=== PATIENT | male | born 1945 | race Caucasian/White ===

== ENCOUNTER 2021-02-12 10:03 | Inpatient (IN) | payer MEDICARE, BC, SELFPAY ==
[2021-02-12] VITALS (16 sets, daily range): BP systolic 103–125; BP diastolic 35–57; PULSE 62–106; RESP 12–21; TEMP 36.7–37.7; O2SAT 94–100; BMI 30.1
--- NOTE | ~2021-02-12 | XR_ITS ---
EXAMINATION: XR hip RT min 3V w AP pelvis INDICATION: Right buttock infection TECHNIQUE: AP view of the pelvis and three views of the right hip are obtained. COMPARISON: None available FINDINGS: There is gas in the soft tissues projecting in the expected location of the medial right bu ttock. There is a chronic-appearing intertrochanteric fracture of the right femur with nonunion. Santacruz ges of right above-knee amputation are noted. There is moderate osteoarthritis of the hips. An IVC fi lter is noted. IMPRESSION: 1. Soft tissue gas projecting in the expected location of the medial right buttock. Would recommend f urther evaluation by CT with contrast to evaluate the extent of infection and assess for any signs of Conrad gangrene. 2. 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 Reviewed, dictated and finalized at location A. IMPRESSION: 1. Soft tissue gas projecting in the expected location of the medial right butt ock. Would recommend further evaluation by CT with contrast to evaluate the ext ent of infection and assess for any signs of Conrad gangrene. 2. 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
--- NOTE | ~2021-02-12 | CT_ITS ---
EXAMINATION: CT abdomen pelvis w con DATE: 02/12/2021 17:00 INDICATION: Right buttock ulcer. TECHNIQUE: Computed tomography (CT) of the abdomen and pelvis was performed with 100 mL Omnipaque 350 intravenous contrast. Automated exposure control and iterative reconstruction technique were employe d. The dose-length product was 1893.79 mGy-cm. COMPARISON: CT abdomen and pelvis 01/19/2013 FINDINGS: The visualized portions of the lung bases demonstrate mild atelectasis. No pleural effusion . The heart size is normal. There are coronary artery calcifications. No pericardial effusion. The li riley is normal. The gallbladder is distended, which may secondary to fasting. The spleen, pancreas, an d adrenal glands are normal. There are cysts in the kidneys measuring up to 12 mm on the left. There is a 3.0 cm mass in left kidney measuring soft tissue attenuation. There is a filter in the infrarena l inferior vena cava. The prostate is mildly enlarged. There is a large volume of stool in the colon with distention of the rectum. The appendix is normal. There are epidural electrodes in thoracic spin e. There are foci of shrapnel in the central spinal canal at L2. There is moderate lumbar spondylosis . There is a comminuted intertrochanteric fracture of proximal right femur with nonunion. There is se dajuan right hip osteoarthritis and moderate left hip osteoarthritis. There is severe fatty atrophy of much of the right-sided pelvic musculature. There is a large right-sided hydrocele. There is a small left-sided hydrocele. There is extensive soft tissue stranding with soft tissue gas in the perineum. IMPRESSION: 1. Extensive soft tissue stranding with soft tissue gas in the perineum. Correlate clinically for Fou rnier gangrene. 2. 3.0 cm left kidney mass, which may be a hemorrhagic cyst or less likely a neoplasm. Abdomen CT wit hout and with contrast is recommended. 3. Large right-sided hydrocele and small left-sided hydrocele. Reviewed, dictated and finalized at location A. IMPRESSION: 1. Extensive soft tissue stranding with soft tissue gas in the perineum. Correl ate clinically for Conrad gangrene. 2. 3.0 cm left kidney mass, which may be a hemorrhagic cyst or less likely a ne oplasm. Abdomen CT without and with contrast is recommended. 3. Large right-sided hydrocele and small left-sided hydrocele.
--- NOTE | ~2021-02-12 | XR_ITS ---
EXAMINATION: XR chest 2V DATE: 02/12/2021 13:39 INDICATION: Fever TECHNIQUE: AP and lateral views of the chest are obtained. COMPARISON: 07/19/2019 FINDINGS: The lungs are free of acute opacities. There is no pleural effusion or pneumothorax. The ca rdiomediastinal silhouette is normal. There are bridging osteophytes at multiple levels in the spine, consistent with diffuse idiopathic skeletal hyperostosis (DISH). A neurostimulator lead projects in the central spinal canal the midthoracic spine. There is moderate osteoarthritis of the shoulders. IMPRESSION: 1. No acute cardiopulmonary abnormality. Reviewed, dictated and finalized at location A.
[2021-02-12 10:42] LABS: Hematocrit 41.1 % (42.0-52.0); Hemoglobin 13.4 g/dL (14.0-18.0); Mean Corpuscular HGB Conc 32.6 g/dl (32-36); Mean Corpuscular Volume 91.9 fl (80-100); Mean Platelet Volume 9.1 fl (7.4-10.4); Platelet Count Result 307 k/mm3 (150-375); Red Blood Count 4.47 M/mm3 (4.6-6.20); Red Cell Distribution Width 15.1 % (11.5-14.5); White Blood Count 17.4 K/mm3 (4.5-10.0)
[2021-02-12 10:54] LABS: Alanine Aminotransferase 14 U/L (4-50); Albumin Level 3.6 g/dL (3.5-5.1); Alkaline Phosphatase 82 U/L (38-126); Anion Gap 7 mmol/L (8-16); Aspartate Amino Transferase 20 U/L (17-59); Bilirubin,Total 0.7 mg/dL (0.2-1.3); Blood Urea Nitrogen 23 mg/dL (9-20); Calcium 8.3 mg/dL (8.4-10.2); Carbon Dioxide 23 mmol/L (22-30); Chloride 107 mmol/L (98-107); Estimated CRCL calculation 76 ml/min; Estimated Glomerular Filt Rate > 60; Glucose 120 mg/dL (65-110); Potassium 3.9 mmol/L (3.4-5.0); Sodium 137 mmol/L (137-145)
[2021-02-12 10:55] LABS: Lactic Acid Reflex 1.4 mmol/L (0.7-2.1)
[2021-02-12 11:13] LABS: Band Neutrophils Percent 6 % (0-6); Eosinophils Absolute Manual 0.17 K/mm3 (0.02-0.5); Eosinophils Percent Manual 1 % (0-4); Lymphocytes Absolute Manual 0.34 K/mm3 (1.1-4.5); Lymphocytes Percent Manual 2 % (18-44); Monocytes Absolute Manual 0.69 K/mm3 (0.1-0.90); Monocytes Percent Manual 4 % (3-9); Neutrophils Absolute Manual 16.18 K/mm3 (1.3-6.7); Neutrophils Percent Manual 87 % (46-73); Total Cells Counted 100
[2021-02-12 11:14] LABS: Hypochromasia 1+ (NORMAL); Platelet Estimate Adequate (Adequate)
[2021-02-12] MEDS: ACETAMINOPHEN 500 MG TABLET 1000 MG PO (11:46)
[2021-02-12] MEDS: SODIUM CHLORIDE 0.9% IV 1,000 ML 999 ML IV CONT ×2 (11:48→14:40)
[2021-02-12 12:04] LABS: INR 2.3; Prothrombin Time 24.4 Seconds (11.1-14.7)
[2021-02-12 12:05] LABS: Partial Thromboplastin Time 42.7 SECONDS (22.3-36.8)
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
[2021-02-12 14:29] LABS: Add Urine Microscopic? YES; Appearance Urine Cloudy (Clear); Bacteria Urine 4+ /hpf; Bilirubin Urine Negative (Negative); Blood Urine 1+ (Negative); Color Urine Amber (Yellow); Glucose Urine UA Negative (Negative); Ketones Urine Negative (Negative); Leukocyte Esterase Ur 2+ LEU/UL (Negative); Mucus Urine Few /lpf; Nitrate Urine Negative (Negative); Protein Urine Negative (Negative); RBC Urine 0-2 /hpf (0-2); Squamous Epithelial Cell Urine Moderate /hpf (Few); WBC Urine 16-20 /hpf
--- NOTE | 2021-02-12 15:54 | ADMGEN ---
This patient, Celestino Metzger, was admitted to [facility] Surg Room 313-01. Patient/family oriented to hospital policies and general routines including ID bracelet, bed and alarms, visiting hours, pain management, procedures, bathroom and other care routines, personal items, smoking policy, room service/diet, and visiting hours. Information on how to activate the Rapid Response Team has been discussed. Patient/Family are encouraged to report perceived risks to care and to ask questions if they do not understand what they are told or what they should do.
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
--- NOTE | 2021-02-12 18:00 | WPDANESEPPF ---
Anes - Initial Pre Proc Eval Procedure: I&D right buttock Date/Time: 02/12/21 18:00 Surgeon: Edenilson Pre Op Diagnosis: Wound Infection Patient Data Age: 75 Gender: M Height: 1.88 m Weight: 106.5 kg Last Vital Signs Temp 36.9 C 02/12/21 15:38 Pulse 62 02/12/21 15:38 Resp 20 02/12/21 15:38 BP 114/42 L 02/12/21 15:38 Pulse Ox 99 02/12/21 15:38 Allergies Allergy/AdvReac Type Severity Reaction Status Date / Time Kandi Nut Allergy Mild Unknown Uncoded 02/12/21 16:15 Home Medications Medication Instructions Recorded Confirmed Type Combivent Respimat 1 puff INHALATION TID PRN 07/16/19 02/12/21 History docusate sodium [Colace] 100 mg PO DAILY 07/16/19 02/12/21 History albuterol sulfate 2.5 mg INHALATION Q4H PRN 02/12/21 02/12/21 History bisacodyl [Dulcolax (bisacodyl)] 5 mg PO HS 02/12/21 02/12/21 History budesonide-formoterol [Symbicort] 2 puff INHALATION BID 02/12/21 02/12/21 History candesartan 16 mg PO DAILY 02/12/21 02/12/21 History famotidine-Ca carb-mag hydrox 1 tablet PO BID PRN 02/12/21 02/12/21 History [Pepcid Complete] fexofenadine 180 mg PO DAILY 02/12/21 02/12/21 History montelukast 10 mg PO DAILY 02/12/21 02/12/21 History nitrofurantoin macrocrystal 100 mg PO DAILY 02/12/21 02/12/21 History simvastatin 20 mg PO DAILY 02/12/21 02/12/21 History warfarin 7 mg PO DAILY 02/12/21 02/12/21 History Laboratory Tests 02/12/21 02/12/21 02/12/21 10:30 10:30 10:30 WBC 17.4 K/mm3 H K/mm3 (4.5-10.0) RBC 4.47 M/mm3 L M/mm3 (4.6-6.20) Hgb 13.4 g/dL L g/dL (14.0-18.0) Hct 41.1 % L % (42.0-52.0) MCV 91.9 fl fl (80-100) MCH 30.0 pg pg (26-34) MCHC 32.6 g/dl g/dl (32-36) RDW 15.1 % H % (11.5-14.5) Plt Count 307 k/mm3 k/mm3 (150-375) MPV 9.1 fl fl (7.4-10.4) Immature Gran % (Auto) Not Reportable Neut % (Auto) Not Reportable Lymph % (Auto) Not Reportable Union % (Auto) Not Reportable Eos % (Auto) Not Reportable Baso % (Auto) Not Reportable Lymph # (Auto) Not Reportable Union # (Auto) Not Reportable Eos # (Auto) Not Reportable Baso # (Auto) Not Reportable Abs Immat Gran (auto) Not Reportable Absolute Neuts (auto) Not Reportable Absolute Nucleated RBC Not Reportable Total Counted 100 Neutrophils % (Manual) 87 % H % (46-73) Band Neutrophils % 6 % % (0-6) Lymphocytes % (Manual) 2 % L % (18-44) Monocytes % (Manual) 4 % % (3-9) Eosinophils % (Manual) 1 % % (0-4) Nucleated RBC % Not Reportable Abs Neuts (Manual) 16.18 K/mm3 H K/mm3 (1.3-6.7) Abs Lymphs (Manual) 0.34 K/mm3 L K/mm3 (1.1-4.5) Abs Monocytes (Manual) 0.69 K/mm3 K/mm3 (0.1-0.90) Absolute Eos (Manual) 0.17 K/mm3 K/mm3 (0.02-0.5) Platelet Estimate Adequate (Adequate) Hypochromasia 1+ (NORMAL) PT INR APTT Sodium 137 mmol/L mmol/L (137-145) Potassium 3.9 mmol/L mmol/L (3.4-5.0) Chloride 107 mmol/L mmol/L (98-107) Carbon Dioxide 23 mmol/L mmol/L (22-30) Anion Gap 7 mmol/L L mmol/L (8-16) BUN 23 mg/dL H mg/dL (9-20) Creatinine 1.00 mg/dL mg/dL (0.7-1.3) Estim Creat Clear Calc 76 ml/min ml/min Estimated GFR > 60 (59 - ) Glucose 120 mg/dL H mg/dL (65-110) Lactic Acid 1.4 mmol/L mmol/L (0.7-2.1) Calcium 8.3 mg/dL L mg/dL (8.4-10.2) Total Bilirubin 0.7 mg/dL mg/dL (0.2-1.3) AST 20 U/L U/L (17-59) ALT 14 U/L U/L (4-50) Alkaline Phosphatase 82 U/L U/L (38-126) Total Protein 7.0 g/dL g/dL (6.3-8.2) Albu
[2021-02-12 18:15] LABS: CRP 4.2 mg/dL (<1.0)
--- NOTE | 2021-02-12 18:29 | PC.NURSE ---
To OR per bed, IV intact. Report given to MARCO ANTONIO Burgess.
[2021-02-12] MEDS: LACTATED RINGERS 1,000 ML 30 ML IV CONT (18:30)
--- NOTE | 2021-02-12 18:33 | WPDHPUPDATE1 ---
History and Physical Update Update Date/Time: 02/12/21 18:33 History and Physical has been reviewed, including an updated exam of the patient. There are NO changes in the patient's condition. Risks, benefits, and alternatives have been discussed and questions answered. Patient agrees to proceed with procedure.
--- NOTE | 2021-02-12 19:25 | W.PM.PROC2 ---
Procedure Note - Detailed Date of Procedure 02/12/21 Pre-op Diagnosis Necrotizing wound infection Post-op Diagnosis same Procedure Performed extensive debridement necrotizing wound infection measuring 11 x 5 x 5 cm, excision of necrotic dermis and subcutaneous tissue, washout Surgeon Roseanne Pyle MD Anesthesia general Indications 75-year-old male presenting with a nonhealing wound on right buttock that has progressed to necrotizing wound infection Findings necrotizing wound infection right buttock extending to perineum, scrotum, measuring 11 x 5 x 5 cm involving dermis and subcutaneous tissue not extending into fascia or muscle Description of Procedure The patient was taken the operating room placed in the lateral position. After adequate induction of general anesthesia, the patient was prepped and draped in the normal sterile fashion. Time-out was then done to verify the patient's identity, as well as the procedure being performed. I began by excising necrotic tissue from the right buttock wound which encompassed both dermis and underlying subcutaneous tissue. No actual abscess cavity was noted, but the necrosis was noted to be extensive and foul-smelling. This did extend medially to the perineum and scrotum. The medial extent of the wound was largely just dermal in nature. Again no real fluid collection was noted. Once all the necrotic tissue was removed, hemostasis was gained with the Bovie cautery. The wound measured 11 x 5 x 5 cm. I then washed out the wound. I then packed the wound with a Betadine soaked Kerlix roll. The patient tolerated the procedure relatively well and was extubated postop. He will be transferred to the recovery room in stable condition. Estimated Blood Loss 50 Drains No Packing Yes Pathology yes Complications No immediate complications Condition stable Disposition PACU
[2021-02-12 19:47] LABS: Glucose Point of Care 119 mg/dl (65-105)
[2021-02-12] MEDS: BISACODYL 5 MG TABLET EC PO (21:15)
[2021-02-12] MEDS: FAMOTIDINE 20 MG TABLET PO (21:15)
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
[2021-02-13] VITALS (10 sets, daily range): BP systolic 99–132; BP diastolic 47–56; PULSE 71–89; RESP 18–20; TEMP 36.3–36.9; O2SAT 96–98; BMI 30.1
[2021-02-13] MEDS: ALBUTEROL SULFATE NEB 2.5 MG/3 ML INH INHALATION (00:28)
[2021-02-13] MEDS: ACETAMINOPHEN 325 MG TABLET 650 MG PO ×2 (06:11→17:21)
[2021-02-13] MEDS: CANDESARTAN CILEXETIL 16 MG TABLET PO (08:44)
[2021-02-13] MEDS: NITROFURANTOIN MONOHYD MACROCR 100 MG CAP PO (08:45)
[2021-02-13] MEDS: SIMVASTATIN 20 MG TABLET PO (08:45)
[2021-02-13] MEDS: FAMOTIDINE 20 MG TABLET PO ×2 (08:45→20:37)
[2021-02-13] MEDS: MONTELUKAST SODIUM 10 MG TABLET PO (08:45)
[2021-02-13] MEDS: LORATADINE 10 MG TABLET PO (08:45)
[2021-02-13] MEDS: DOCUSATE SODIUM 100 MG CAPSULE PO (08:45)
[2021-02-13 09:39] LABS: Basophils Percent Auto 0.2 % (0.2-1.2); Hematocrit 36.2 % (42.0-52.0); Hemoglobin 11.8 g/dL (14.0-18.0); Immature Granulocyte Absolute 0.08 K/mm3 (0.00-0.031); Immature Granulocyte Percent A 0.6 % (0-0.5); Lymphocytes Absolute Auto 0.37 K/mm3 (0.9-3.2); Lymphocytes Percent Auto 2.6 % (18.3-44.2); Mean Corpuscular HGB Conc 32.6 g/dl (32-36); Mean Corpuscular Hemoglobin 30.4 pg (26-34); Mean Corpuscular Volume 93.3 fl (80-100); Mean Platelet Volume 9.3 fl (7.4-10.4); Monocytes Absolute Auto 0.8 K/mm3 (0.1-0.6); Monocytes Percent Auto 5.6 % (2.6-8.5); Platelet Count Result 289 k/mm3 (150-375); Red Blood Count 3.88 M/mm3 (4.6-6.20); Red Cell Distribution Width 14.9 % (11.5-14.5); White Blood Count 14.3 K/mm3 (4.5-10.0)
[2021-02-13 09:43] LABS: Anion Gap 9 mmol/L (8-16); Blood Urea Nitrogen 23 mg/dL (9-20); Carbon Dioxide 20 mmol/L (22-30); Chloride 109 mmol/L (98-107); Estimated CRCL calculation 73 ml/min; Estimated Glomerular Filt Rate > 60; Glucose 183 mg/dL (65-110); Potassium 4.1 mmol/L (3.4-5.0); Sodium 138 mmol/L (137-145)
--- NOTE | 2021-02-13 10:06 | PM.PNGS ---
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 Status: Acute Assessment and Plan: better, cont local wound care, unable to vac given location, cont abx, await path Subjective Subjective Date/Time Seen: 02/13/21 10:06 feels better today, no further f/c, minimal soreness Review of Systems Review of Systems: All systems reviewed & are unremarkable except as noted in HPI and below Exam Const: General: cooperative, comfortable and no acute distress Resp: Auscultation: clear to auscultation bilaterally Cardio: Rate: regular rate Rhythm: regular rhythm GI: Inspection: normal to inspection and non-distended GI Palp: Yes Soft to palpation and No Tenderness to palpation present (GI) Skin: Other: R buttock wound - drsg C/D/I Objective Data Vital Signs Vital Signs: Vital Signs - 24 hr 02/12/21 10:47 02/12/21 11:50 02/12/21 11:56 Temperature Pulse Rate 100 104 H 103 H Respiratory Rate 19 18 15 Blood Pressure 103/43 L 116/52 L 116/52 L Pulse Oximetry 100 96 94 02/12/21 12:28 02/12/21 13:29 02/12/21 14:16 Temperature 36.7 C Pulse Rate 97 106 H Respiratory Rate 21 H 21 H Blood Pressure 114/53 L Pulse Oximetry 99 98 02/12/21 15:18 02/12/21 15:38 02/12/21 19:35 Temperature 36.9 C 37.6 C H Pulse Rate 79 62 85 Respiratory Rate 18 20 12 Blood Pressure 121/57 L 114/42 L 108/53 L Pulse Oximetry 97 99 100 02/12/21 19:50 02/12/21 20:05 02/12/21 20:13 Temperature Pulse Rate 80 82 83 Respiratory Rate 20 17 18 Blood Pressure 106/53 L 125/55 L 112/53 L Pulse Oximetry 100 98 97 02/12/21 20:25 02/12/21 20:40 02/12/21 22:20 Temperature 37.1 C 37.1 C 36.7 C Pulse Rate 81 82 85 Respiratory Rate 20 20 20 Blood Pressure 107/39 L 110/45 L 111/48 L Pulse Oximetry 94 95 96 02/13/21 00:28 02/13/21 00:34 02/13/21 00:38 Temperature 36.9 C Pulse Rate 87 86 89 Respiratory Rate 20 20 20 Blood Pressure 115/52 L Pulse Oximetry 96 02/13/21 01:15 02/13/21 02:17 02/13/21 07:48 Temperature 36.8 C 36.8 C Pulse Rate 86 84 Respiratory Rate 20 20 Blood Pressure 99/56 L 113/47 L Pulse Oximetry 96 96 97 Intake/Output Intake/Output: Intake & Output 02/10/21 02/11/21 02/12/21 02/13/21 23:59 23:59 23:59 23:59 Intake Total 2830 460 Output Total 2200 Balance 2830 -1740 Meds/Results Medications: Active Medications Generic Name Dose Route Start Last Admin Trade Name Freq PRN Reason Stop Dose Admin Acetaminophen 650 mg 02/12/21 14:07 02/13/21 06:11 Acetaminophen 325 Mg Tablet PO 650 mg Q4H PRN Administration Mild Pain (1-3) or Fever Hydrocodone Bitart/Acetaminophen 1 tab 02/12/21 14:07 Hydrocodone/Acetaminophen (*Crx) 5-325 Mg Tablet PO Q4H PRN Pain Rated 4-6 Albuterol 2.5 mg 02/12/21 20:17 02/13/21 00:28 Albuterol Sulfate Neb 2.5 Mg/3 Ml Inh INHALATION 2.5 mg Q4H PRN Administration Dyspnea Bisacodyl 5 mg 02/12/21 21:00 02/12/21 21:15 Bisacodyl 5 Mg Tablet Ec PO 5 mg HS PANCHO Administration Budesonide/Formoterol Fumarate 2 puff 02/12/21 20:20 02/13/21 07:47 Budesonide/Form 160-4.5 Mcg (*Sp) INHALATION 2 puff Q12HRT PANCHO Administration Candesartan Cilexetil 16 mg 02/13/21 09:00 02/13/21 08:44 Candesartan Cilexetil 16 Mg Tablet PO 16 mg DAILY PANCHO Administration Docusate Sodium 100 mg 02/13/21 09:00 02/13/21 08:45 Docusate Sodium 100 Mg Capsule PO 100 mg DAILY PANCHO Administration Famotidine 20 mg 02/12/21 21:00 02/13/21 08:45 Famotidine 20 Mg Tablet PO 20 mg Q12HR PANCHO Administration Piperacillin/Tazobactam/Dextrose 3.375 gm in 50 mls @ 100 mls/hr 02/12/21 18:00 02/13/21 06:35 Zosyn 3.375 Gm/D5w 50ml Pm IVPB Infused Q6H PANCHO Infusion Loratadine 10 mg 02/13/21 09:00 02/13/21 08:45 Loratadine 10 Mg Tablet PO 10 mg QAM PANCHO Administration Montelukast Sodium 10 mg 02/13/21 09:00 0
[2021-02-13 11:13] LABS: Prothrombin Time 29.9 Seconds (11.1-14.7)
[2021-02-13] MEDS: SILVERGEL (ELTA) 45 ML 1 APPLIC TOPICAL ×2 (12:14→20:41)
--- NOTE | 2021-02-13 17:13 | PM.IMPN ---
Progress Note: A&P Assessment and Plan (1) Decubitus ulcer, unstageable with infection: Code(s): L89.95 - Pressure ulcer of unspecified site, unstageable; L08.9 - Local infection of the skin and subcutaneous tissue, unspecified Status: Acute Assessment and Plan: patient has been started on empiric antibiotic therapy with Zosyn. General surgery has been consulted for possible debridement of wound. Will check x-ray of the pelvis to rule out possible tracking of infectious process, subcutaneous air. 02/13/21 17:13 patient had a surgical debridement, surgeon is present in the room there were no abscess, plan is to place wound VAC and have wound team follow the patient, patient denies any fevers, wound culture is growing E coli will follow-up on sensitivity,patient being treated Zosyn and will monitor (2) Sepsis: Qualifiers: Sepsis type: sepsis due to unspecified organism Sepsis acute organ dysfunction status: without acute organ dysfunction Qualified Code(s): A41.9 - Sepsis, unspecified organism Code(s): A41.9 - Sepsis, unspecified organism Status: Acute Assessment and Plan: Sepsis based on criteria of leukocytosis, fever, tachycardia, and tachypnea. Criteria present on admission. Blood cultures and urine cultures pending. Sepsis due to infected decubitus ulcer. Empiric antibiotic therapy with Zosyn has been ordered. The patient had not received IV fluid hydration in the ER subsequently 2 L of normal saline bolus has been ordered with maintenance fluids to be continued at 100 mL an hour given patient's low urine output. Will repeat CBC, BMP and INR with a.m. labs. (3) Tobacco abuse: Code(s): Z72.0 - Tobacco use Status: Acute Assessment and Plan: The patient is not interested in tobacco cessation currently. Education has been provided. (4) Neurogenic bladder: Code(s): N31.9 - Neuromuscular dysfunction of bladder, unspecified Status: Inactive Assessment and Plan: Continue chronic suppressive therapy with Macrodantin. Intermittent straight catheterization t.i.d. (5) Chronic anticoagulation: Code(s): Z79.01 - computer terminal operator (current) use of anticoagulants Status: Acute Assessment and Plan: check daily INR given antibiotic administration. Additional Plan Patient has been admitted as observation status. Subjective Date/time seen: 02/13/21 17:13 patient has been started on empiric antibiotic therapy with Zosyn. General surgery has been consulted for possible debridement of wound. Will check x-ray of the pelvis to rule out possible tracking of infectious process, subcutaneous air. patient had a surgical debridement, surgeon is present in the room there were no abscess, plan is to place wound VAC and have wound team follow the patient, patient denies any fevers, wound culture is growing E coli will follow-up on sensitivity,patient being treated Zosyn and will monitor Review of Systems Review of Systems: All systems reviewed & are unremarkable except as noted in HPI and below Exam Narrative: Patient is comfortable, NAD HEENT: eyes are clear and none icteric LUNGS:CTA HEART: RR S1S2 ABD: BS+, Soft and nontender Lower extremities: no edema SKIN: nonjaundiced Neuro: grossly intact. Objective Data Vital Signs Vital Signs: Vital Signs - 24 hr 02/12/21 19:35 02/12/21 19:50 02/12/21 20:05 Temperature 99.7 F H Pulse Rate 85 80 82 Respiratory Rate 12 20 17 Blood Pressure 108/53 L 106/53 L 125/55 L Pulse Oximetry 100 100 98 02/12/21 20:13 02/12/21 20:25 02/12/21 20:40 Temperature 98.7 F 98.8 F Pulse Rate 83 81 82 Respiratory Rate 18 20 20 Blood Pressure 112/53 L 107/39 L 110/45 L Pulse Oximetry 97 94 95 02/12/21 22:20 02/13/21 00:28 02/13/21 00:34 Temperature 98.1 F 98.5 F Pulse Rate 85 87 86 Respiratory Rate 20 20 20 Blood Pressure 111/48 L 115/52 L
[2021-02-13] MEDS: BISACODYL 5 MG TABLET EC PO (20:53)
[2021-02-14] MEDS: MORPHINE SULFATE (*CRX) 4 MG/ML INJ IV PUSH (03:38)
[2021-02-14 06:00] VITALS: BP 156/81; PULSE 66; RESP 18; TEMP 36.8; O2SAT 98
[2021-02-14 06:52] LABS: Basophils Percent Auto 0.3 % (0.2-1.2); Eosinophils Absolute Auto 0.2 K/mm3 (0-0.3); Eosinophils Percent Auto 1.5 % (0-4.4); Hematocrit 35.4 % (42.0-52.0); Hemoglobin 11.8 g/dL (14.0-18.0); Immature Granulocyte Absolute 0.05 K/mm3 (0.00-0.031); Immature Granulocyte Percent A 0.4 % (0-0.5); Lymphocytes Percent Auto 7.4 % (18.3-44.2); Mean Corpuscular HGB Conc 33.3 g/dl (32-36); Mean Corpuscular Hemoglobin 30.3 pg (26-34); Mean Corpuscular Volume 90.8 fl (80-100); Mean Platelet Volume 9.1 fl (7.4-10.4); Monocytes Absolute Auto 1.2 K/mm3 (0.1-0.6); Neutrophils Absolute Auto 9.8 K/mm3 (1.3-6.7); Neutrophils Percent Auto 80.4 % (45.5-73.1); Platelet Count Result 303 k/mm3 (150-375); Red Cell Distribution Width 14.7 % (11.5-14.5); White Blood Count 12.1 K/mm3 (4.5-10.0)
[2021-02-14 07:08] LABS: Anion Gap 6 mmol/L (8-16); Blood Urea Nitrogen 20 mg/dL (9-20); Calcium 8.5 mg/dL (8.4-10.2); Carbon Dioxide 24 mmol/L (22-30); Chloride 109 mmol/L (98-107); Estimated CRCL calculation 93 ml/min; Estimated Glomerular Filt Rate > 60; Glucose 95 mg/dL (65-110); Sodium 139 mmol/L (137-145)
[2021-02-14 07:55] LABS: Prothrombin Time 30.6 Seconds (11.1-14.7)
[2021-02-14] MEDS: MONTELUKAST SODIUM 10 MG TABLET PO (08:59)
[2021-02-14] MEDS: DOCUSATE SODIUM 100 MG CAPSULE PO (08:59)
[2021-02-14] MEDS: LORATADINE 10 MG TABLET PO (08:59)
[2021-02-14] MEDS: NITROFURANTOIN MONOHYD MACROCR 100 MG CAP PO (08:59)
[2021-02-14] MEDS: CANDESARTAN CILEXETIL 16 MG TABLET PO (08:59)
[2021-02-14] MEDS: SIMVASTATIN 20 MG TABLET PO (08:59)
[2021-02-14] MEDS: FAMOTIDINE 20 MG TABLET PO (08:59)
[2021-02-14] MEDS: SILVERGEL (ELTA) 45 ML 1 APPLIC TOPICAL (09:00)
--- NOTE | 2021-02-14 12:46 | PM.PNGS ---
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 Okay from a surgical standpoint to discharge the patient home today. Continue local wound care - his plans to do dressing changes at home. F/u in wound clinic in 2 weeks. Limit pressure to the wound. Continue abx per Hospitalist. Additional Plan I have discussed the patient's case and plan of care with Dr. Pyle. Subjective Subjective Date/Time Seen: 02/14/21 12:00 Post Op day: 2 Patient reports: no new complaints, bowel movement and afebrile Interval history: Patient doing well today. Per the nurse, he changed the dressing this morning and had no concerns with the wound, he denies any purulent drainage in the wound or on the dressing. Patient is eager to go home and his is at the bedside. His is a retired nurse and feels comfortable doing dressing changes at home. They do not feel that they need home health to come by. Review of Systems Review of Systems: All systems reviewed & are unremarkable except as noted in HPI and below Exam Const: General: cooperative, comfortable and no acute distress Orientation/consciousness: patient oriented x3 Skin: Other: Right buttock dressing clean, dry, intact. (recently changed by nurse) Psych: Mental Status: mental status grossly normal Insight: Good insight present (Psych) Judgement: Good judgement present (Psych) Objective Data Vital Signs Vital Signs: Vital Signs - 24 hr 02/13/21 14:00 02/13/21 20:00 02/13/21 20:36 Temperature 97.4 F L Pulse Rate 71 73 Respiratory Rate 18 20 Blood Pressure 118/53 L Pulse Oximetry 98 98 97 02/13/21 22:00 02/14/21 06:00 Temperature 97.3 F L 98.2 F Pulse Rate 73 66 Respiratory Rate 20 18 Blood Pressure 132/51 L 156/81 H Pulse Oximetry 98 98 Intake/Output Intake/Output: Intake & Output 02/11/21 02/12/21 02/13/21 02/14/21 23:59 23:59 23:59 23:59 Intake Total 2830 2000 415 Output Total 5800 Balance 2830 -3800 415 Meds/Results Medications: Active Medications Generic Name Dose Route Start Last Admin Trade Name Freq PRN Reason Stop Dose Admin Acetaminophen 650 mg 02/12/21 14:07 02/13/21 17:21 Acetaminophen 325 Mg Tablet PO 650 mg Q4H PRN Administration Mild Pain (1-3) or Fever Hydrocodone Bitart/Acetaminophen 1 tab 02/12/21 14:07 Hydrocodone/Acetaminophen (*Crx) 5-325 Mg Tablet PO Q4H PRN Pain Rated 4-6 Albuterol 2.5 mg 02/12/21 20:17 02/13/21 00:28 Albuterol Sulfate Neb 2.5 Mg/3 Ml Inh INHALATION 2.5 mg Q4H PRN Administration Dyspnea Bisacodyl 5 mg 02/12/21 21:00 02/13/21 20:53 Bisacodyl 5 Mg Tablet Ec PO 5 mg HS PANCHO Administration Budesonide/Formoterol Fumarate 2 puff 02/12/21 20:20 02/14/21 08:13 Budesonide/Form 160-4.5 Mcg (*Sp) INHALATION 2 puff Q12HRT PANCHO Administration Candesartan Cilexetil 16 mg 02/13/21 09:00 02/14/21 08:59 Candesartan Cilexetil 16 Mg Tablet PO 16 mg DAILY PANCHO Administration Docusate Sodium 100 mg 02/13/21 09:00 02/14/21 08:59 Docusate Sodium 100 Mg Capsule PO 100 mg DAILY PANCHO Administration Famotidine 20 mg 02/12/21 21:00 02/14/21 08:59 Famotidine 20 Mg Tablet PO 20 mg Q12HR PANCHO Administration Piperacillin/Tazobactam/Dextrose 3.375 gm in 50 mls @ 100 mls/hr 02/12/21 18:00 02/14/21 12:30 Zosyn 3.375 Gm/D5w 50ml Pm IVPB 100 mls/hr Q6H PANCHO Administration Loratadine 10 mg 02/13/21 09:00 02/14/21 08:59 Loratadine 10 Mg Tablet PO 10 mg QAM PANCHO Administration Montelukast Sodium 10 mg 02/13/21 09:00 02/14/21 08:59 Montelukast Sodium 10 Mg Tablet PO 10 mg DAILY PANCHO Administration Morphine Sulfate 4 mg 02/12/21 14:07 02/14/21 03:38 Morphine Sulfate (*Crx) 4 Mg/Ml Inj IV PUSH 4 mg Q2H PRN Administration Pain Rated 7-10 Nitrofurantoin Macrocrystals
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
[2021-02-14 14:00] VITALS: BP 141/74; PULSE 72; RESP 14; TEMP 36.6; O2SAT 98
--- NOTE | 2021-02-15 06:40 | P.CDI_ITS ---
CDI Query Clarification Request -02/12 urine culture growing >100,000 E Coli Please clarify if there is a possible corresponding diagnosis for above finding: * UTI * Bacteriuria * No clinical significance * Unable to determine <Seema Zhu RN - Last Filed: 02/15/21 06:41> Clarified Diagnosis (1) UTI (urinary tract infection): Code(s): N39.0 - Urinary tract infection, site not specified <Seema Zhu RN - Last Filed: 02/15/21 06:41> Status: Acute <Seema Zhu RN - Last Filed: 02/15/21 06:41> Assessment and Plan: Patient urine is growing E coli patient has uti <Rosalba Cleaning MD - Last Filed: 03/12/21 08:57>
== END 2021-02-14 14:34 | disposition home or self-care (01) | DRG 872 ==
LOC: ANHED 11:03 → ANH3MEDSUR 14:55
PROVIDERS: Emergency Medicine; Surgery; Admitting Provider Internal Medicine; Emergency Provider Emergency Medicine; PCP Family Medicine; Visit Provider Family Medicine
PROC: 0HB8XZZ Excision of Buttock Skin, External Approach (ICD-10-PCS; CPT 46040; principal; 2021-02-12 18:45)
DX: A41.9 Sepsis, unspecified organism (principal); G82.22 Paraplegia, incomplete; L89.890 Pressure ulcer of other site, unstageable; L08.9 Local infection of the skin and subcutaneous tissue, unspecified; N49.3 Fournier gangrene; N31.9 Neuromuscular dysfunction of bladder, unspecified; F17.210 Nicotine dependence, cigarettes, uncomplicated; J44.9 Chronic obstructive pulmonary disease, unspecified; I10 Essential (primary) hypertension; E78.5 Hyperlipidemia, unspecified; Z79.01 Long term (current) use of anticoagulants; Z79.899 Other long term (current) drug therapy; Z86.711 Personal history of pulmonary embolism; Z89.611 Acquired absence of right leg above knee; Z91.81 History of falling; Z99.3 Dependence on wheelchair
CPT/HCPCS: 36415; 51701; 71046; 73502; 74177; 80048; 80053; 81001; 82948; 83605; 85025; 85610; 85730; 86140; 87040; 87070; 87077; 87086; 87088; 87147; 87186; 87205; 88304; 94640; 96361; 96365; 96366; 99285; A9270; G0378; J0330; J1100; J2270; J2405; J2543; J2704; J7030; J7120; Q9967

== ENCOUNTER 2021-03-01 11:08 | Outpatient (CLI) | payer MEDICARE, BC, SELFPAY ==
[2021-03-01 11:34] LABS: Hematocrit 37.4 % (42.0-52.0); Hemoglobin 12.3 g/dL (14.0-18.0); Mean Corpuscular HGB Conc 32.9 g/dl (32-36); Mean Corpuscular Hemoglobin 30.8 pg (26-34); Mean Corpuscular Volume 93.5 fl (80-100); Mean Platelet Volume 8.4 fl (7.4-10.4); Platelet Count Result 472 k/mm3 (150-375); Red Cell Distribution Width 14.3 % (11.5-14.5); White Blood Count 17.1 K/mm3 (4.5-10.0)
[2021-03-01 12:26] LABS: Band Neutrophils Percent 2 % (0-6); Eosinophils Absolute Manual 0.51 K/mm3 (0.02-0.5); Eosinophils Percent Manual 3 % (0-4); Lymphocytes Absolute Manual 0.51 K/mm3 (1.1-4.5); Monocytes Absolute Manual 0.51 K/mm3 (0.1-0.90); Monocytes Percent Manual 3 % (3-9); Neutrophils Absolute Manual 15.56 K/mm3 (1.3-6.7); Neutrophils Percent Manual 89 % (46-73); Platelet Estimate Adequate (Adequate); Total Cells Counted 100
[2021-03-01 13:40] LABS: Add Urine Microscopic? YES; Appearance Urine Clear (Clear); Bilirubin Urine Negative (Negative); Blood Urine Negative (Negative); Color Urine Amber (Yellow); Glucose Urine UA Negative (Negative); Ketones Urine Negative (Negative); Leukocyte Esterase Ur 2+ LEU/UL (Negative); Mucus Urine Few /lpf; Nitrate Urine Negative (Negative); Protein Urine 1+ mg/dL (Negative); Specific Grav Ur 1.028 (1.001-1.035); Squamous Epithelial Cell Urine Few /hpf (Few); WBC Urine 21-30 /hpf
== END 2021-03-01 11:09 | disposition home or self-care (01) ==
PROVIDERS: PCP Family Medicine; Visit Provider Surgery
DX: R50.9 Fever, unspecified (principal)
CPT/HCPCS: 36415; 81001; 85025; 87077; 87086; 87088; 87186

== ENCOUNTER 2021-03-04 10:10 | Emergency (ER) | payer MEDICARE, BC, SELFPAY ==
[2021-03-04] VITALS (11 sets, daily range): BP systolic 96–126; BP diastolic 50–78; PULSE 81–116; RESP 18–22; TEMP 36.9–38.7; O2SAT 92–99
--- NOTE | ~2021-03-04 | CT_ITS ---
EXAMINATION: CT abdomen pelvis w con DATE: 03/04/2021 14:27 INDICATION: Nausea and vomiting. Fever. TECHNIQUE: Computed tomography (CT) of the abdomen and pelvis was performed with 100 mL Omnipaque 350 intravenous contrast. Automated exposure control and iterative reconstruction technique were employe d. The dose-length product was 1985.93 mGy-cm. COMPARISON: CT abdomen and pelvis 02/12/2021 FINDINGS: The visualized portions of the lung bases demonstrate mild atelectasis. No pleural effusion . The heart size is normal. There are coronary artery calcifications. There is a trace left pericardi al effusion. Calcified right hilar lymph nodes are consistent with old granulomatous disease. The ita er, gallbladder, pancreas, and adrenal glands are normal. Calcifications in the spleen are consistent with old granulomatous disease. There are cysts in right kidney measuring up to 10 mm. There is a 3. 1 cm mass in left kidney measuring soft tissue attenuation. The prostate is mildly enlarged. There ar e no dilated loops of bowel. The appendix is normal. There is a filter in the infrarenal inferior lindsey a cava. There are no pathologically enlarged lymph nodes. There is no free intraperitoneal fluid. In the right perineum, there is an ulcer with extensive fat stranding and soft tissue gas extending supe riorly to the ischiorectal fat. There is a comminuted intertrochanteric fracture of proximal right fe mur with nonunion. There is severe right hip osteoarthritis and moderate left hip osteoarthritis. The re are epidural electrodes in thoracic spine. There is shrapnel in central spinal canal at L2. There is moderate lumbar spondylosis and mild thoracic spondylosis. IMPRESSION: 1. Worsened ulcer in the right perineum with cellulitis and soft tissue gas extending superiorly to t he ischiorectal fat. Correlate clinically for Conrad gangrene. 2. 3.1 cm left kidney mass, which may be a hemorrhagic cyst or less likely a neoplasm. Abdomen CT wit hout and with contrast is recommended. Reviewed, dictated and finalized at location A. IMPRESSION: 1. Worsened ulcer in the right perineum with cellulitis and soft tissue gas ext ending superiorly to the ischiorectal fat. Correlate clinically for Conrad gómez. 2. 3.1 cm left kidney mass, which may be a hemorrhagic cyst or less likely a ne oplasm. Abdomen CT without and with contrast is recommended.
--- NOTE | ~2021-03-04 | XR_ITS ---
XR chest 2V DATE: 03/04/2021 10:50 INDICATION: Shortness of breath, fever TECHNIQUE: AP and lateral views COMPARISON: 02/12/2021 AP and lateral chest FINDINGS: Normal heart size. No hilar or mediastinal enlargement. There is mild left basilar infiltrate or atelectasis. No pulmonary infiltrate or consolidation, pleural effusion or pulmonary vascular congestion or pneumo thorax is noted otherwise. Electrodes overlie the mid to lower thoracic spine. Diffuse idiopathic skeletal hyperostosis of the thoracic spine. IMPRESSION: Mild left basilar infiltrate and/atelectasis Reviewed, dictated and finalized at location A.
--- NOTE | 2021-03-04 10:19 | ECG_ITS ---
Measurements Intervals [place] Rate: 114 P: 28 MT: 135 QRS: 6 QRSD: 113 T: 58 QT: 330 QTc: 456 Interpretive Statements SINUS TACHYCARDIA INTRAVENTRICULAR CONDUCTION DELAY BASELINE ARTIFACT- I, II, AVR, AVL, AVF, V1-V2, V4-V6 ABNORMAL ECG Electronically Signed On 03-04-2021 13:24:13 CDT by Heber Bradshaw D.O.
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
[2021-03-04 11:41] LABS: Hematocrit 32.7 % (42.0-52.0); Hemoglobin 10.8 g/dL (14.0-18.0); Mean Corpuscular Hemoglobin 30.4 pg (26-34); Mean Corpuscular Volume 92.1 fl (80-100); Platelet Count Result 395 k/mm3 (150-375); Red Blood Count 3.55 M/mm3 (4.6-6.20); Red Cell Distribution Width 14.1 % (11.5-14.5); White Blood Count 14.2 K/mm3 (4.5-10.0)
[2021-03-04] MEDS: SODIUM CHLORIDE 0.9% IV 1,000 ML 999 ML IV CONT ×2 (11:50→12:53)
[2021-03-04] MEDS: ONDANSETRON INJ 4 MG/2 ML VIAL IV PUSH (11:50)
[2021-03-04 11:53] LABS: Lactic Acid Reflex 3.1 mmol/L (0.7-2.1)
[2021-03-04 11:56] LABS: INR 1.9; Prothrombin Time 21.2 Seconds (11.1-14.7)
[2021-03-04 11:57] LABS: Partial Thromboplastin Time 39.3 SECONDS (22.3-36.8)
[2021-03-04 12:02] LABS: Alanine Aminotransferase 27 U/L (4-50); Albumin Level 3.1 g/dL (3.5-5.1); Alkaline Phosphatase 143 U/L (38-126); Anion Gap 7 mmol/L (8-16); Aspartate Amino Transferase 35 U/L (17-59); Bilirubin,Total 0.4 mg/dL (0.2-1.3); Blood Urea Nitrogen 34 mg/dL (9-20); Carbon Dioxide 28 mmol/L (22-30); Chloride 103 mmol/L (98-107); Estimated CRCL calculation 67 ml/min; Estimated Glomerular Filt Rate > 60; Glucose 122 mg/dL (65-110); Potassium 3.7 mmol/L (3.4-5.0); Sodium 138 mmol/L (137-145)
[2021-03-04 12:17] LABS: Platelet Estimate Adequate (Adequate)
[2021-03-04 12:42] LABS: Add Urine Microscopic? YES; Appearance Urine Clear (Clear); Bacteria Urine Trace /hpf; Bilirubin Urine Negative (Negative); Blood Urine Negative (Negative); Color Urine Amber (Yellow); Glucose Urine UA Negative (Negative); Ketones Urine Negative (Negative); Leukocyte Esterase Ur 1+ LEU/UL (Negative); Mucus Urine Rare /lpf; Nitrate Urine Negative (Negative); Protein Urine 1+ mg/dL (Negative); Squamous Epithelial Cell Urine Moderate /hpf (Few)
[2021-03-04] MEDS: SODIUM CHLORIDE 0.9% IV 500 ML 999 ML IV CONT (14:27)
[2021-03-04 14:37] LABS: Reflex Lactic Acid Yes or No Add Lactic
[2021-03-04] MEDS: CIPROFLOXACIN 400 MG/D5W 200ML 200 ML 200 MG IVPB (15:29)
[2021-03-04] MEDS: MORPHINE SULFATE (*CRX) 2 MG/ML INJ IV PUSH (16:49)
== END 2021-03-04 16:50 | disposition short-term general hospital (02) ==
PROVIDERS: Emergency Provider General Practice; PCP Family Medicine
DX: N49.3 Fournier gangrene (principal); A41.9 Sepsis, unspecified organism; N30.00 Acute cystitis without hematuria; N28.89 Other specified disorders of kidney and ureter; J44.9 Chronic obstructive pulmonary disease, unspecified; F17.210 Nicotine dependence, cigarettes, uncomplicated; Z86.718 Personal history of other venous thrombosis and embolism; Z79.01 Long term (current) use of anticoagulants; Z86.711 Personal history of pulmonary embolism
CPT/HCPCS: 36415; 51701; 71046; 74177; 80053; 81001; 83605; 85025; 85610; 85730; 86140; 87040; 87070; 87086; 87147; 87181; 87186; 87205; 93005; 96365; 96367; 96368; 96375; 99285; J0131; J0692; J0744; J2270; J2405; J7030; J7040; Q9967

== ENCOUNTER 2021-08-28 15:11 | Outpatient (CLI) | payer MEDICARE, BC, SELFPAY ==
--- NOTE | ~2021-08-28 | XR_ITS ---
XR hand RT min 3V DATE: 08/28/2021 15:37 INDICATION: Right hand injury, pain TECHNIQUE: 4 views COMPARISON: None FINDINGS: No fracture or dislocation, periosteal reaction or bone destruction is evident. There is po lyarticular osteoarthritis. IMPRESSION: No fracture or dislocation is detected Reviewed, dictated and finalized at location B. AL CATEGORY MANAGER
== END 2021-08-28 15:12 | disposition home or self-care (01) ==
PROVIDERS: PCP Family Medicine; Visit Provider Family Medicine
DX: M79.641 Pain in right hand (principal)
CPT/HCPCS: 73130

== ENCOUNTER 2024-04-24 20:38 | Emergency (ER) | payer MEDICARE, BC, SELFPAY ==
[2024-04-24] VITALS (12 sets, daily range): BP systolic 128–190; BP diastolic 80; PULSE 91–103; RESP 15–22; TEMP 36.7–38.4; O2SAT 92–99
--- NOTE | ~2024-04-24 | CT_ITS ---
EXAMINATION: CT pelvis w con DATE: 04/25/2024 02:31 INDICATION: Conrad gangrene. Fever. TECHNIQUE: Computed tomography (CT) of the pelvis was performed with 100 mL Omnipaque 350 intravenous contrast. Automated exposure control and iterative reconstruction technique were employed. The dose- length product was 1278.40 mGy-cm. COMPARISON: CT abdomen and pelvis 04/24/2024 FINDINGS: Partially visualized is a colostomy on the left. There are no dilated loops of bowel. The p rostate is mildly enlarged. There are no pathologically enlarged lymph nodes. There is no free intrap eritoneal fluid. There is asymmetric severe fatty atrophy of the right pelvic and right thigh muscula ture. There is a large right hydrocele. There is a decubitus ulcer overlying right ischium. There is sclerosis in right ischium with aggressive periosteal reaction. There is an old fracture of proximal right femur with nonunion. IMPRESSION: 1. Decubitus ulcer overlying right ischium with chronic osteomyelitis of right ischium. 2. Large right hydrocele. Reviewed, dictated and finalized at location A.
--- NOTE | ~2024-04-24 | CT_ITS ---
EXAMINATION: CT abdomen pelvis w con DATE: 04/24/2024 22:29 INDICATION: Fever. TECHNIQUE: Computed tomography (CT) of the abdomen and pelvis was performed with 100 mL Omnipaque 350 intravenous contrast. Automated exposure control and iterative reconstruction technique were employe d. The dose-length product was 1884.68 mGy-cm. COMPARISON: CT abdomen and pelvis 03/04/2021 FINDINGS: The visualized portions of the lung bases demonstrate mild atelectasis. No pleural effusion . Calcified right hilar lymph nodes are consistent with old granulomatous disease. The heart size is normal. There are coronary artery calcifications. No pericardial effusion. There is a small sliding h iatal hernia. The liver is normal. Calcifications in the spleen are consistent with old granulomatous disease. The gallbladder and pancreas are normal. There is a 3.1 cm mass in left kidney measuring so ft tissue attenuation. There are cysts in the kidneys measuring up to 8 mm on the right. There is an end colostomy on the left. There are no dilated loops of bowel. The appendix is normal. The prostate is mildly enlarged. There is a filter in the inferior vena cava. There are no pathologically enlarged lymph nodes. There is no free intraperitoneal fluid. Epidural electrodes are noted. There is an old fracture of proximal right femur with nonunion. There is a decubitus ulcer overlying right ischial tu berosity extending to the bone. There is sclerosis and aggressive periosteal reaction involving right ischium, consistent with osteomyelitis. There are bridging endplate osteophytes at multiple levels i n the spine, consistent with diffuse idiopathic skeletal hyperostosis (DISH). There is moderate lumba r spondylosis. There is mild chronic anterior wedging at T7. IMPRESSION: 1. Right ischial decubitus ulcer with chronic osteomyelitis of right ischium. 2. 3.1 cm left kidney mass, which may be a hemorrhagic cyst, but renal cell carcinoma cannot be exclu ded. Abdomen CT without and with contrast is recommended. Reviewed, dictated and finalized at location A. IMPRESSION: 1. Right ischial decubitus ulcer with chronic osteomyelitis of right ischium. 2. 3.1 cm left kidney mass, which may be a hemorrhagic cyst, but renal cell car cinoma cannot be excluded. Abdomen CT without and with contrast is recommended.
--- NOTE | ~2024-04-24 | XR_ITS ---
EXAMINATION: XR chest 1V portable Exam Date/Time: 04/24/2024 20:52 CDT HISTORY: weakness Comparison: 03/04/2021. RESULT: Lines, tubes, and devices: Stimulator leads over the lower thoracic spine.. Lungs and pleura: Low volumes with crowding, otherwise clear. Cardiomediastinal silhouette: Stable. Other: No acute osseous or upper abdominal finding. IMPRESSION: No acute cardiopulmonary process. Reviewed, dictated and finalized at location K.
--- NOTE | 2024-04-24 20:47 | ECG_ITS ---
Test Date: 2024-04-24 20:51:43 Measurements Intervals [place] Rate: 102 P: 18 MA: 176 QRS: -4 QRSD: 113 T: 53 QT: 350 QTc: 456 Interpretive Statements SINUS TACHYCARDIA INCOMPLETE RIGHT BUNDLE BRANCH BLOCK [90+ ms QRS DURATION, TERMINAL R IN V1/V2, 40+ ms S IN I/aVL/V4/V5/V6] NONSPECIFIC T-WAVE ABNORMALITY ABNORMAL RHYTHM ECG No previous ECG available for comparison Electronically Signed On 04-24-2024 22:07:02 CDT by Álvaro Cain M.D.
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
[2024-04-24 21:34] LABS: Basophils Percent Auto 0.3 % (0.2-1.2); Eosinophils Absolute Auto 0.2 K/mm3 (0-0.3); Eosinophils Percent Auto 1.5 % (0-4.4); Hematocrit 37.3 % (42.0-52.0); Hemoglobin 12.2 g/dL (14.0-18.0); Immature Granulocyte Absolute 0.03 K/mm3 (0.00-0.031); Immature Granulocyte Percent A 0.3 % (0-0.5); Lymphocytes Absolute Auto 0.39 K/mm3 (0.9-3.2); Lymphocytes Percent Auto 3.3 % (18.3-44.2); Mean Corpuscular HGB Conc 32.7 g/dl (32-36); Mean Corpuscular Hemoglobin 30.7 pg (26-34); Mean Platelet Volume 9.3 fl (7.4-10.4); Monocytes Absolute Auto 0.7 K/mm3 (0.1-0.6); Monocytes Percent Auto 6.2 % (2.6-8.5); Neutrophils Absolute Auto 10.3 K/mm3 (1.3-6.7); Neutrophils Percent Auto 88.4 % (45.5-73.1); Platelet Count Result 275 k/mm3 (150-375); Red Blood Count 3.97 M/mm3 (4.6-6.20); Red Cell Distribution Width 14.9 % (11.5-14.5); White Blood Count 11.7 K/mm3 (4.5-10.0)
[2024-04-24] MEDS: LACTATED RINGERS 1,000 ML 999 ML IV CONT (21:35)
[2024-04-24] MEDS: MORPHINE SULFATE (*CRX) 4 MG/ML INJ IV PUSH (21:35)
[2024-04-24 21:44] LABS: INR 1.2; Prothrombin Time 15.5 Seconds (11.1-14.7)
[2024-04-24 21:46] LABS: Partial Thromboplastin Time 26.9 Seconds (22.3-36.8)
[2024-04-24 21:48] LABS: Alanine Aminotransferase 20 U/L (6-50); Albumin Level 4.1 g/dL (3.5-5.1); Alkaline Phosphatase 76 U/L (38-126); Anion Gap 8 mmol/L (4-12); Aspartate Amino Transferase 22 U/L (17-59); Bilirubin,Total 0.6 mg/dL (0.2-1.3); Blood Urea Nitrogen 27 mg/dL (9-20); Calcium 8.7 mg/dL (8.4-10.2); Carbon Dioxide 25 mmol/L (22-30); Chloride 104 mmol/L (98-107); Estimated CRCL calculation 70 ml/min; Estimated Glomerular Filt Rate > 60; Glucose 156 mg/dL (65-110); Sodium 137 mmol/L (137-145)
[2024-04-24 21:55] LABS: Lactic Acid Reflex 1.3 mmol/L (0.7-2.0)
[2024-04-24 21:58] LABS: CRP 3.2 mg/dL (<1.0)
--- NOTE | 2024-04-24 22:17 | PC.NURSE ---
Patient in CT at this time.
[2024-04-24] MEDS: ACETAMINOPHEN 500 MG TABLET 1000 MG PO (22:48)
[2024-04-24] MEDS: PIPERACILLN/TAZ 3.375GM/NS50ML 3.375 GM/50 ML BAG IVPB (22:49)
--- NOTE | 2024-04-24 23:00 | PC.NURSE ---
0795 Michelle, patients nurse/caregiver at the [facility] calls to get update on patients status.
[2024-04-24] MEDS: metroNIDAZOLE 500 MG/ISO 100ML 500 MG/100 ML BAG 100 MG IVPB (23:29)
[2024-04-25] VITALS (7 sets, daily range): BP systolic 119–187; BP diastolic 70–99; PULSE 60–89; RESP 13–20; TEMP 36.7–38.3; O2SAT 94–97
--- NOTE | 2024-04-25 00:44 | PC.NURSE ---
Julianne, caregiver and nurse at [facility] calls to get update.
[2024-04-25] MEDS: VANCOMYCIN 1,250 MG/NS 250 ML 1,250 MG/250 ML BAG 166.67 MG IVPB ×2 (01:40→03:41)
[2024-04-25 03:30] LABS: Add Urine Microscopic? YES; Appearance Urine Clear (Clear); Bacteria Urine None Seen /hpf; Bilirubin Urine Negative (Negative); Blood Urine Negative (Negative); Color Urine Yellow (Yellow); Glucose Urine UA Negative (Negative); Ketones Urine Negative (Negative); Leukocyte Esterase Ur Negative LEU/UL (Negative); Need Manual Microscopic Reviewed; Nitrate Urine Positive (Negative); Non Pathogenic Casts 0-2; Protein Urine Trace mg/dL (Negative); RBC Urine 0-2 /hpf (0-2); Specific Grav Ur > 1.045 (1.001-1.035); Squamous Epithelial Cell Urine None Seen /hpf (Few); Urobilinogen Urine 0.2 mg/dL (<2.0); WBC Urine 21-50 /hpf (0-3)
--- NOTE | 2024-04-25 03:40 | PC.NURSE ---
Patient report called to [facility] at [phone]. Calling for transport at this time. Awaiting ETA for air evac or ALS EMS.
--- NOTE | 2024-04-25 03:41 | PC.NURSE ---
Patients caregiver and nurse, Julianne, at [facility] calls to get update. Julianne informed of patients transfer to [facility] and transfer diagnosis.
--- NOTE | 2024-04-25 04:42 | PC.NURSE ---
[facility] here to transport patient.
== END 2024-04-25 04:58 | disposition short-term general hospital (02) ==
PROVIDERS: Emergency Provider Student in an Organized Health Care Education/Training Program; PCP Family Medicine
DX: L02.31 Cutaneous abscess of buttock (principal); L03.317 Cellulitis of buttock; E11.52 Type 2 diabetes mellitus with diabetic peripheral angiopathy with gangrene; A48.0 Gas gangrene; J44.9 Chronic obstructive pulmonary disease, unspecified; E11.9 Type 2 diabetes mellitus without complications; E78.5 Hyperlipidemia, unspecified; N31.9 Neuromuscular dysfunction of bladder, unspecified; M17.12 Unilateral primary osteoarthritis, left knee; F17.210 Nicotine dependence, cigarettes, uncomplicated; Z93.3 Colostomy status; Z96.82 Presence of neurostimulator; Z86.711 Personal history of pulmonary embolism; Z87.440 Personal history of urinary (tract) infections; Z89.611 Acquired absence of right leg above knee; Z90.49 Acquired absence of other specified parts of digestive tract; Z79.01 Long term (current) use of anticoagulants; Z79.899 Other long term (current) drug therapy
CPT/HCPCS: 36415; 71045; 72193; 74177; 80053; 81001; 83605; 85025; 85610; 85730; 86140; 87040; 87086; 93005; 96365; 96366; 96367; 96375; 99285; A9270; J1836; J2270; J2543; J3370; J7120; Q9967

== ENCOUNTER 2024-10-15 10:36 | Emergency (ER) | payer MEDICARE, BC, SELFPAY ==
[2024-10-15] VITALS (7 sets, daily range): BP systolic 140–161; BP diastolic 82–87; PULSE 76–98; RESP 15–25; TEMP 36.6; O2SAT 97–99
--- NOTE | ~2024-10-15 | XR_ITS ---
EXAMINATION: XR chest 2V 10/15/2024 11:08 INDICATION: Shortness of breath PROCEDURE: 2 view chest COMPARISON: Comparison to multiple prior studies sequentially, with oldest reviewed study dated 12/2019. FINDINGS: The lungs are clear. The cardiomediastinal silhouette is within normal limits. There are no pleural effusions. There is no pneumothorax suspected. There is a spinal stimulator lead. IMPRESSION: 1: NO ACUTE CARDIOPULMONARY DISEASE. Reviewed, dictated and finalized at location A.
--- NOTE | 2024-10-15 10:47 | ECG_ITS ---
Test Date: 2024-10-15 10:50:10 Measurements Intervals [place] Rate: 92 P: 61 AL: 208 QRS: -9 QRSD: 118 T: 70 QT: 365 QTc: 452 Interpretive Statements SINUS RHYTHM INCOMPLETE RIGHT BUNDLE BRANCH BLOCK BORDERLINE ECG Compared to ECG 04/24/2024 20:51:43 HEART RATE HAS DECREASED Electronically Signed On 10-15-2024 10:58:19 CDT by Heber Bradshaw D.O.
[2024-10-15 11:05] LABS: Basophils Percent Auto 0.4 % (0.2-1.2); Eosinophils Percent Auto 12.3 % (0-4.4); Hematocrit 38.9 % (42.0-52.0); Immature Granulocyte Absolute 0.04 K/mm3 (0.00-0.031); Immature Granulocyte Percent A 0.5 % (0-0.5); Lymphocytes Absolute Auto 0.62 K/mm3 (0.9-3.2); Lymphocytes Percent Auto 7.5 % (18.3-44.2); Mean Corpuscular HGB Conc 30.8 g/dl (32-36); Mean Corpuscular Hemoglobin 29.3 pg (26-34); Mean Corpuscular Volume 94.9 fl (80-100); Mean Platelet Volume 9.5 fl (7.4-10.4); Monocytes Percent Auto 11.4 % (2.6-8.5); Neutrophils Absolute Auto 5.7 K/mm3 (1.3-6.7); Neutrophils Percent Auto 67.9 % (45.5-73.1); Platelet Count Result 297 k/mm3 (150-375); White Blood Count 8.3 K/mm3 (4.5-10.0)
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
--- OUTSIDE RECORDS SUMMARY | 2024-10-15 11:08 | XMS_ITS | Clinical Summary ---
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 patient review this report in the presence of a health care provider who can answer questions and explain the details. Final Report Patient Name: DEBBIE BROCK : 1945 (Age: 78) Gender: M Address: [address] [place] [address] Hospital #: [id number] Service: Surgery Location: Patient Type: [facility] OUTPATIENT Taken: 08/19/2024 Received: 08/19/2024 Accessioned: 08/19/2024 Reported: 08/20/2024 Physician(s): MD Buck Tipton M.D. Diagnosis: Hydrocele, right, hydrocelectomy: - Hydrocele Kt Looney M.D., Ph.D. Report Electronically Reviewed and Signed Out By Kt Looney M.D., Ph.D. 08/20/2024 16:21:00 Specimen(s) Received: A: Hydrocele sac Microscopic Description: Microscopic examination is performed. Microscopic examination is performed. Clinical History: The patient is a 78-year-old man with a hydrocele. Operative procedure: Right hydrocelectomy. Gross Description Received in formalin, labeled with the patient s identifiers and hydrocele sac and consists of three medina-red, irregularly shaped, membranous tissue fragments ranging from 4.2 x 2.2 x 0.3 cm to 9.5 x 2.7 x 0.5 cm. The tissue fragments are wrinkled and glistening. No nodules or masses are grossly identified. B[employer] Machine Feeder Offbearer sections are submitted. Labeled A1. Jac Garcia jjmhb/08/19/2024 12:55 MAXINE Condon, PA (ASCP) Microscopic slide review and interpretation for this case was performed at [facility], Department of Surgical Pathology, [address] [facility] [place], [place] [id number], [place] [id number] CLIA # [id number] us Ranjith White MD LAB PATHOLOGY ORDERA BLES Final Result PATHOLOGY [facility] * MI AN ELECTIVE SUPRAGLOTTIC AIRWAY, MI AN PROCEDURE PLACEHOLDER (08/19/2024 10:00 AM FOOD BEVERAGE MANAGER) Narrative Hannah Nunn CRNA - 08/19/2024 10:00 AM FOOD BEVERAGE MANAGER Hannah Nunn CRNA 08/19/2024 10:00 AM Airway Patient location: OR Urgency: elective Indications for airway management: anesthesia Difficult airway: no Staff: Placed by: [employer] AGENT: Hannah Nunn CRNA Emergent airway documentation: Risks and benefits discussed: yes Consent obtained: yes Consent given by: patient Airway prep: Preoxygenated: yes Patient position: sniffing MILS maintained throughout: yes Mask difficulty assessment: 0 - not attempted Spontaneous ventilation during airway: absent Sedation level during airway: GA Final airway details: Final airway type: supraglottic airway Final supraglottic airway: classic SGA size: 4 Number of attempts: 1 us Darren Collins MD ANESTHESIA ORDERABLES Final Result * Urine culture Urine, in and out catheter (08/10/2024 8:40 AM FOOD BEVERAGE MANAGER) Report Final Report: Less than 10,000 colonies/mL (clinically insignificant growth based on current clinical standards) Comment:Testing performed by : [facility], [address] [facility], [place]., [address] Organism (CLINICALLY INSIGNIFICANT GROWTH [facility] GARCIA Urine, in and out catheter 08/10/2024 8:40 AM FOOD BEVERAGE MANAGER 08/10/2024 1:45 PM FOOD BEVERAGE MANAGER Narrative OLGA RADHA - 08/12/2024 3:11 PM FOOD BEVERAGE MANAGER collect time 07:00 Testing performed by [facility] Microbiology Laboratory ([phone]) us Ranjith White MD LAB MICROBIOLOGY - G ENERAL ORDERABLES Final Result [facility] [address] [facility] Department [place] [address] * ECG 12 lead (08/09/2024 2:21 PM FOOD BEVERAGE MANAGER) Ventricular Rate EKG/Min 77 BPM [facility] Atrial Rate 77 BPM [facility] MI-Interval (MSEC) 152 ms [facility] QRS-Interval (MSEC) 110 ms [facility] QT-Interval (MSEC) 384 ms [facility] QTc 434 ms [facility] P [place] 21 degrees [facility] R [place] -4 degrees [facility] T [place] 46 degrees [facility] Diagnosis Normal sinus rhythm Normal ECG When compared with ECG of 07-MAR-2021 06:07 Premature ventricular complexes absent Confirmed by JEREMIAS VERDUGO M.D. ([id number]) on 08/09/2024 9:29:57 PM [facility] 08/09/2024 2:21 PM FOOD BEVERAGE MANAGER 08/09/2024 9:29 PM FOOD BEVERAGE MANAGER us Shelby Perales A OPERATOR ECG ORDERABLES [place] Result [facility] * Post-Discharge Dressing Care (07/28/2024 1:59 PM FOOD BEVERAGE MANAGER) Narrative Preeti Beaver, MARCO ANTONIO - 07/28/2024 1:59 PM FOOD BEVERAGE MANAGER Right ischium wound: - SQ debridement (done) - Silver nitrate (done) - Vashe soak, 10 minutes (done) - Stoma powder and skin prep to periwound - Promogran to wound, cover with Exudry Right buttock wound: - Promogran to open wound, cover with Allevyn gentle border dressing Follow-up in approximately one month Wound care performed per order. us Clotilde Vargas NP NURSING WOUND CARE Final Result * US Scrotum W Limited Doppler (C) (07/27/2024 10:48 AM FOOD BEVERAGE MANAGER) Anatomical Region Laterality Modality Testis N/A Ultrasound 07/27/2024 11:0 0 AM FOOD BEVERAGE MANAGER Narrative 07/27/2024 11:15 AM FOOD BEVERAGE MANAGER EXAM DESCRIPTION: US SCROTUM W LIMITED DOPPLER (C) REASON FOR STUDY: RIGHT HYDROCELE TECHNIQUE: Clements scale imaging of the scrotum and testes with selected color Doppler and spectral analysis. COMPARISON: Ultrasound dated 04/26/2024 FINDINGS: RIGHT: TESTICLE: The right testicle measures 3.8 x 3.1 x 2.8 cm. Right testicle appears small in size previously measuring 4.6 x 3.6 x 2.3 cm. There is minimal to no flow seen within the right testicle. EPIDIDYMIS: The epididymis is poorly seen. HYDROCELE OR VARICOCELE: There is a very large right hydrocele which appears increased in size since the prior examination measuring approximately 13 x 12 cm. It has internal debris. Previously it measured about 11 x 11 x 9 cm. HERNIA OR EXTRA-TESTICULAR MASS: There is no evidence of extratesticular mass. OTHER: No other significant finding. LEFT: TESTICLE: The left testicle measures 2.5 x 3.2 x 2.0 cm. There is markedly decreased color Doppler flow in the left testicle. A faint arterial waveform is seen at the periphery of the left testicle. In the left testicle appears hypoechoic. EPIDIDYMIS: Not well seen. HYDROCELE OR VARICOCELE: There is no evidence of significant hydrocele or varicocele. HERNIA OR EXTRA-TESTICULAR MASS: There is no evidence of extratesticular mass. OTHER: No other significant finding. IMPRESSION: 1. Bilateral testicular ischemia. No blood flow seen within the right testicle and markedly diminished blood flow in the left testicle. This could be secondary to torsion or from mass effect from the massive right hydrocele. Urgent urology consultation recommended. Dr. Vásquez discussed this with Dr. Stubbs at 11:15 a.m. on 07/27/2024 THIS IS AN ELECTRONICALLY VERIFIED FINAL REPORT 07/27/2024 11:15 AM - Electronically signed by Raheel Vásquez M.D. KN: [id number] Report ID: [id number] Reading Location: [id number] Procedure Note Raheel Vásquez MD - 07/27/2024 EXAM DESCRIPTION: US SCROTUM W LIMITED DOPPLER (C) REASON FOR STUDY: RIGHT HYDROCELE TECHNIQUE: Clements scale imaging of the scrotum and testes with selectedcolor Doppler and spectral analysis. COMPARISON: Ultrasound dated 04/26/2024 FINDINGS: RIGHT: TESTICLE: The right testicle measures 3.8 x 3.1 x 2.8 cm. Righttesticle appears small in size previously measuring 4.6 x 3.6 x 2.3 cm. There is minimal to no flow seen within the right testicle. EPIDIDYMIS: The epididymis is poorly seen. HYDROCELE OR VARICOCELE: There is a very large right hydrocele whichappears increased in size since the prior examination measuring approximately 13 x12 cm. It has internal debris. Previously it measured about 11 x 11 x 9 cm. HERNIA OR EXTRA-TESTICULAR MASS: There is no evidence of extratesticular mass. OTHER: No other significant finding. LEFT: TESTICLE: The left testicle measures 2.5 x 3.2 x 2.0 cm. There ismarkedly decreased color Doppler flow in the left testicle. A faint arterialwaveform is seen at the periphery of the left testicle. In the left testicleappears hypoechoic. EPIDIDYMIS: Not well seen. HYDROCELE OR VARICOCELE: There is no evidence of significant hydrocele or varicocele. HERNIA OR EXTRA-TESTICULAR MASS: There is no evidence of extratesticular mass. OTHER: No other significant finding. IMPRESSION: 1. Bilateral testicular ischemia. No blood flow seen within the right testicle and markedly diminished blood flow in the left testicle. Thiscould be secondary to torsion or from mass effect from the massive righthydrocele. Urgent urology consultation recommended. Dr. Vásquez discussed this with Dr. Stubbs at 11:15 a.m. on 07/27/2024 THIS IS AN ELECTRONICALLY VERIFIED FINAL REPORT 07/27/2024 11:15 AM - Electronically signed by Raheel Vásquez M.D. KN: KN Report ID: [id number] Reading Location: [place] [address] us Yousef John White MD IMG US PROCEDURES Fi nal Result * eGFR (04/30/2024 8:22 PM CDT) eGFR 83 >=60 mL/min/1. 73 m2 Comment: Interpretive Data Reference Interval Normal >/= 90 mL/min/1.73m2 Mildly decreased* 60 - 89 mL/min/1.73m2 Mildly to moderately decreased 45 - 59 mL/min/1.73m2 Moderately to severely decreased 30 - 44 mL/min/1.73m2 Severely decreased 15 - 29 mL/min/1.73m2 Kidney Failure < 15 mL/min/1.73m2 *Relative to young adult level Estimated glomerular filtration rate is determined by the 2020 CKD-EPI equation recommended by the National Kidney Foundation (A Unifying Approach to GFR Estimation: Recommendations of the NKF-ASK Task Force on Reassessing the Inclusion of Race in Diagnosing Kidney Disease, JASN 202). The CKD-EPI equation should not be used for patients with unstable renal function and has not been validated in children and those over 70. Current interpretive data was last reviewed 2021. Blood 04/30/2024 8:22 PM CDT 04/30/2024 8:37 PM CDT us Vicky Duenas MD LAB BLOOD ORDERABLES Final Res ult [facility] Department [place] [address] * (ABNORMAL) Hemoglobin A1c (04/26/2024 4:32 AM CDT) Hgb A1C 7.1(H) 4.0 - 5.6 % Estimated Average Glucose 157 mg/dL [facility] Comment: The ADA recommends reporting an estimated Average Glucose (eAG) with all Hemoglobin A1c results using the equation derived from a study of 507 normal and diabetic adults. Minority populations were underrepresented and children were not included. (Diabetes Care 2020; 43(S1): S66-S76). The eAG is not equivalent to a fasting glucose. Blood 04/26/2024 4:32 AM CDT 04/26/2024 4:44 AM CDT us Vicky Duenas MD LAB BLOOD ORDERABLES Final Res ult [facility] Department [place] [address] * (ABNORMAL) Lipid panel (04/26/2024 4:32 AM CDT) Cholesterol 120 30 - 199 mg/dL Comment: Interpretive Data Ages < or = 19 years Acceptable: <170 mg/dL Borderline high: 170-199 mg/dL High: >or= 200 mg/dL Ages > or = 20 years Desirable: <200 mg/dL Borderline high: 200-239 mg/dL High: >or= 240 mg/dL Literature References: 1. Expert Panel on Integrated Guidelines for Cardiovascular Health and Risk Reduction in Children and Adolescents. Pediatrics 2011;128:S213 2. NCEP Expert Panel. Circulation 2004;110:227 Current Interpretive Data was last revised on 2018. Triglycerides 114 <=149 mg/dL [facility] Comment: Interpretive Data Ages < or = 9 years Acceptable: <75 mg/dL Borderline high: 75-99 mg/dL High: >or= 100 mg/dL Ages 10 to 20 years Acceptable: <90 mg/dL Borderline high: 90-129 mg/dL High: >or= 130 mg/dL Ages > or = 20 years Desirable: <150 mg/dL Borderline high: 150-199 mg/dL High: 200-499 mg/dL Very high: >or= 499 mg/dL Literature References: 1. Expert Panel on Integrated Guidelines for Cardiovascular Health and Risk Reduction in Children and Adolescents. Pediatrics 2011;128:S213 2. NCEP Expert Panel. Circulation 2004;110:227 Current Interpretive Data was last revised on 2018. HDL 30(L) >=40 mg/dL [facility] Comment: Interpretive Data Ages < or = 19 years Acceptable: >45 mg/dL Borderline low: 40-45 mg/dL Low: <40 mg/dL Ages > or = 20 years Desirable: >or= 60 mg/dL Low: <40 mg/dL Literature References: 1. Expert Panel on Integrated Guidelines for Cardiovascular Health and Risk Reduction in Children and Adolescents. Pediatrics 2011;128:S213 2. NCEP Expert Panel. Circulation 2004;110:227 Current Interpretive Data was last revised on 2018. LDL, calculated 69 <=129 mg/dL [facility] Comment: Interpretive Data Ages < or = 19 years Acceptable: <110 mg/dL Borderline high: 110-129 mg/dL High: >or= 130 mg/dL Ages > or = 20 years Optimal: <100 mg/dL Near optimal: 100-129 mg/dL Borderline high: 130-159 mg/dL High: >160 mg/dL Calculated using the Tani LDL-C estimating equation. This equation was implemented on 2024. Prior to this date LDL-C was estimated using the Friedewald equation. Literature References: 1. Expert Panel on Integrated Guidelines for Cardiovascular Health and Risk Reduction in Children and Adolescents. Pediatrics 2011;128:S213 2. NCEP Expert Panel. Circulation 2004;110:227 3. Tani Padron al. JULIO CESAR Cardiol. 2020 November 11;5(5):540-548. doi: 10.1001/jamacardio.2020.0013 Current Interpretive Data was last revised on 2024. Non-HDL Cholesterol 90 mg/dL [facility] Comment: Interpretive Data Ages < or = 19 years Acceptable: <120 mg/dL Borderline high: 120-144 mg/dL High: >145 mg/dL Ages > or = 20 years When triglycerides are >200 mg/dL, Non-HDL cholesterol is a secondary target of therapy with treatment goals that are 30 mg/dL greater than the LDL cholesterol target. Literature References: 1. Expert Panel on Integrated Guidelines for Cardiovascular Health and Risk Reduction in Children and Adolescents. Pediatrics 2011;128:S213 2. NCEP Expert Panel. Circulation 2004;110:227 Current Interpretive Data was last revised on 2018. Chol/HDL ratio 4 [facility] Blood 04/26/2024 4:32 AM CDT 04/26/2024 4:44 AM CDT us Cam Sanchez MD LAB BLOOD ORDERABLES Fin al Result [facility] Department [place] [address] * CT Abdomen Pelvis W Contrast (05/02/2021 8:13 PM CDT) Anatomical Region Laterality Modality Body N/A Computed Tomogra phy 05/02/2021 8:26 PM CDT Impressions 05/03/2021 7:39 AM CDT 1. No etiology is seen on CT to explain the patient's symptoms. 2. Large right gluteal soft tissue wound with an overlying wound VAC is unchanged. Likely osteomyelitis is also unchanged. 3. Postsurgical changes of Rivas's pouch with an end colostomy in the lower midline abdomen. Dictated by: Rhiannon Hunter M.D. The radiology attending physician has personally reviewed this study, and had reviewed and/or edited this written report and agrees with it. Electronically signed by: Barry Becker M.D. Narrative 05/03/2021 7:39 AM CDT EXAMINATION: Computed tomography of the abdomen and pelvis with intravenous contrast HISTORY: 75-year-old man with a colostomy, presenting with abdominal pain and generalized weakness. TECHNIQUE: Transaxial computed tomographic images of the abdomen and pelvis were obtained with intravenous contrast according to the standard protocol after the uneventful administration of 100 mL Opti-Ray 350 intravenous contrast. COMPARISON: Comparison is made to a prior CT scan dated 03/15/2021. FINDINGS: The visualized portions of the heart and lung bases are normal. The liver, gallbladder, pancreas, and spleen appear normal. The adrenal glands and right kidney appear normal. A simple cyst is present in the inferior pole the left kidney. There is no hydronephrosis. The urinary bladder is decompressed. There is no evidence of bowel obstruction. The appendix appears normal. There is a Rivas's pouch with an end colostomy in the lower midline abdomen. There is stranding in the subcutaneous tissues along the midline surgical incision without evidence of an organized collection. Atherosclerotic calcifications are present in the aorta and its branches. There is an inferior vena cava filter. Calcifications are present within both common femoral and external iliac veins, which may be related to chronic thrombus. 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 There is a large soft tissue wound along the right gluteal region with an overlying wound VAC, which is unchanged. Soft tissue calcifications are seen superior to that soft tissue wound. A spinal stimulator device is partially visualized. The wound extends to the right ischium and there is likely osteomyelitis without change from the prior. Procedure Note Barry Becker MD - 05/03/2021 EXAMINATION: Computed tomography of the abdomen and pelvis with intravenous contrast HISTORY: 75-year-old man with a colostomy, presenting with abdominal pain and generalized weakness. TECHNIQUE: Transaxial computed tomographic images of the abdomen and pelvis were obtained with intravenous contrast according to the standard protocol after the uneventful administration of 100 mL Opti-Ray 350 intravenous contrast. COMPARISON: Comparison is made to a prior CT scan dated 03/15/2021. FINDINGS: The visualized portions of the heart and lung bases are normal. The liver, gallbladder, pancreas, and spleen appear normal. The adrenal glands and right kidney appear normal. A simple cyst is present in the inferior pole the left kidney. There is no hydronephrosis. The urinary bladder is decompressed. There is no evidence of bowel obstruction. The appendix appears normal. There is a Rivas's pouch with an end colostomy in the lower midline abdomen. There is stranding in the subcutaneous tissues along the midline surgical incision without evidence of an organized collection. Atherosclerotic calcifications are present in the aorta and its branches. There is an inferior vena cava filter. Calcifications are present within both common femoral and external iliac veins, which may be related to chronic thrombus. 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 There is a large soft tissue wound along the right gluteal region with an overlying wound VAC, which is unchanged. Soft tissue calcifications are seen superior to that soft tissue wound. A spinal stimulator device is partially visualized. The wound extends to the right ischium and there is likely osteomyelitis without change from the prior. IMPRESSION: 1. No etiology is seen on CT to explain the patient's symptoms. 2. Large right gluteal soft tissue wound with an overlying wound VAC is unchanged. Likely osteomyelitis is also unchanged. 3. Postsurgical changes of Rivas's pouch with an end colostomy in the lower midline abdomen. Dictated by: Rhiannon Hunter M.D. The radiology attending physician has personally reviewed this study, and had reviewed and/or edited this written report and agrees with it. Electronically signed by: Barry Becker M.D. Slava Ferrari MD IMG CT PROCEDURES Final Result from Last 3 Months or Most Recently Relevant to Health Maintenance Insurance MEDICARE [employer] OOS MEDICARE [facility] MEDICARE [facility] TRADITIONAL MEDICARE [employer] OOS Advance Directives For more information, please contact: [phone] * Full Code (Latest Code Status on File) Date Activated Date Inactivated Comments 04/25/2024 6:25 PM 05/01/2024 7:29 PM * Full Code Date Activated Date Inactivated Comments 03/05/2021 3:45 AM 03/21/2021 6:52 PM Care Teams Edge Polisher Relationship Specialty Start Date End Date Buck Sawyer MD [address] [place] [id number] PCP - General 05/02/21
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
[2024-10-15 11:15] LABS: Alanine Aminotransferase 23 U/L (6-50); Alkaline Phosphatase 107 U/L (38-126); Anion Gap 8 mmol/L (4-12); Aspartate Amino Transferase 22 U/L (17-59); Bilirubin,Total 0.3 mg/dL (0.2-1.3); Blood Urea Nitrogen 38 mg/dL (9-20); Calcium 8.7 mg/dL (8.4-10.2); Carbon Dioxide 29 mmol/L (22-30); Chloride 105 mmol/L (98-107); Estimated Glomerular Filt Rate > 60; Glucose 252 mg/dL (65-110); Potassium 4.6 mmol/L (3.4-5.0); Sodium 142 mmol/L (137-145)
[2024-10-15] MEDS: ALBUTEROL SULFATE NEB 2.5 MG/3 ML INH INHALATION (11:23)
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
[2024-10-15] MEDS: MORPHINE SULFATE (*CRX) 2 MG/ML INJ IV PUSH (11:51)
--- NOTE | 2024-10-15 11:59 | PC.NURSE ---
Pt self catheterizes. Provided with cath kit.
[2024-10-15 12:21] LABS: Influenza A QL RT-PCR Negative (Negative); Influenza B QL RT-PCR Negative (Negative); RSV RNA, RT-PCR Negative (Negative); SARS-CoV-2 RNA PCR Negative (Negative)
[2024-10-15 13:58] LABS: Add Urine Microscopic? NO; Appearance Urine Clear (Clear); Bilirubin Urine Negative (Negative); Blood Urine Negative (Negative); Color Urine Yellow (Yellow); Glucose Urine UA 3+ mg/dL (Negative); Ketones Urine Negative (Negative); Leukocyte Esterase Ur Negative LEU/UL (Negative); Nitrate Urine Negative (Negative); Protein Urine Negative (Negative); Specific Grav Ur 1.022 (1.001-1.035); Urobilinogen Urine 0.2 mg/dL (<2.0); pH Urine 6.5 (5.0-9.0)
[2024-10-15] MEDS: traMADol HCL (*CRX) 50 MG TABLET PO (14:35)
== END 2024-10-15 15:03 | disposition home or self-care (01) ==
PROVIDERS: Emergency Provider Emergency Medicine; PCP Family Medicine
DX: M54.9 Dorsalgia, unspecified (principal); J44.9 Chronic obstructive pulmonary disease, unspecified; E11.9 Type 2 diabetes mellitus without complications; E78.5 Hyperlipidemia, unspecified; F17.210 Nicotine dependence, cigarettes, uncomplicated; Z20.822 Contact with and (suspected) exposure to COVID-19
CPT/HCPCS: 36415; 71046; 80053; 81003; 85025; 87637; 93005; 94640; 96374; 99284; A9270; J2270

== ENCOUNTER 2025-01-05 08:01 | Outpatient (CLI) | payer MEDICARE, BC, SELFPAY ==
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
[2025-01-30 22:10] VITALS: BMI 34.0
== END 2025-01-06 06:29 | disposition home or self-care (01) ==
LOC: ANHCSM 08:02
PROVIDERS: PCP Family Medicine; Visit Provider Family Medicine
DX: G47.33 Obstructive sleep apnea (adult) (pediatric) (principal)
CPT/HCPCS: 95811

== ENCOUNTER 2025-02-21 14:11 | Outpatient (CLI) | payer MEDICARE, BC, SELFPAY ==
--- NOTE | ~2025-02-21 | XR_ITS ---
Exam: X-ray knee left 3 views. HISTORY: Unspecified injury to left lower leg. Fell 2 weeks ago. TECHNIQUE: 4 images of the left knee were obtained. COMPARISON: None FINDINGS: Bones appear osteopenic. Moderate to severe narrowing of the medial compartment. Spurring of the tibi al spines. Moderate sized superior pole and inferior pole spurs in the patella. Small suprapatellar e ffusion. Vascular calcifications are present. Moderate narrowing of the patellofemoral joint. No frac ture. No dislocation. Soft tissue swelling about the left knee. IMPRESSION: 1. No acute bony abnormality. 2. Moderate to severe narrowing of the medial compartment. 3. Moderate narrowing of the patellofemoral joint. If symptoms persist or worsen, consider a short-term follow-up study or MRI of the left knee for furt her assessment. Reviewed, dictated and finalized at location A. IMPRESSION: 1. No acute bony abnormality. 2. Moderate to severe narrowing of the medial compartment. 3. Moderate narrowing of the patellofemoral joint. If symptoms persist or worsen, consider a short-term follow-up study or MRI of the left knee for further assessment.
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
== END 2025-02-21 14:12 | disposition home or self-care (01) ==
PROVIDERS: PCP Family Medicine; Visit Provider Family Medicine
DX: M17.12 Unilateral primary osteoarthritis, left knee (principal); S89.92XA Unspecified injury of left lower leg, initial encounter; X58.XXXA Exposure to other specified factors, initial encounter
CPT/HCPCS: 73562